=== PATIENT | male | born 1990 | race African-American/Black ===

== ENCOUNTER 2017-08-24 10:51 | Emergency (ER) | payer MEDICAID ==
--- NOTE | 2017-08-24 10:59 | ED Physician Chart ---
ED Chief Complaint/HPI - Patient Information Date Seen:: 08/24/17 Time Seen:: 10:59 Chief Complaint:: Cough, chest pain, SOB History of Present Illness:: 26 yo male had dry cough, chest pain, SOB for 4 days. No fever, chills. Had chest pressure, preventing deep breath. Has history of mild intermittent asthma. Allergies:: Allergies Allergy/AdvReac Type Severity Reaction Status Date / Time No Known Allergies Allergy Verified 06/01/16 02:22 ED Review of Systems - Review of Systems General/Constitutional: No fever, No chills Skin: No skin lesions Head: No headache Eyes: No pain ENT: No earache Neck: No neck pain Cardio Vascular: Chest pain Pulmonary: SOB GI: No nausea, No vomiting Musculoskeletal: No bone or joint pain ED Past Medical History - Past Medical History Past Medical History: Asthma/COPD Social History: Non Smoker, No Alcohol, No Drug Use Surgical History: None Family Medical History - Family Member Mother Ethnicity: Non- Living Status: Still Living Hx Family Cancer: No Hx Family Coronary Artery Disease: No Hx Family Congestive Heart Failure: No Hx Family Hypertension: No Hx Family Stroke: No ED Physical Exam - Physical Examination General/Constitutional: Awake, Alert Head: Atraumatic Eyes: PERRL Skin: No skin lesions ENMT: Nasal exam nl Neck: No nuchal rigidity Other Respiratory comments:: Wheezing Cardio Vascular: RRR, No murmur, gallop, rubs, NL S1 S2 GI: No tenderness/rebounding/guarding Extremities: normal strength in all extremities Neuro/Psych: No focal deficits ED Assessment - Assessment General Assessment: Upper respiratory infection, viral Bronchitis Assessment/Comments:: CBC, CMP, UA Trop I, BNP to rule out cardiac abnormality CXR, EKG DuoNeb D/c home Tamiflu F/u PCP or return to ER if symptoms worsen ED Septic Shock - . Is Septic Shock (SBP<90, OR Lactate>4 mmol\L) present?: No ED Reassessment (Disposition) - Reassessment Reassessment Condition:: Improved - Patient Disposition Discharge/Transfer:: Home ED Discharge Plan - Patient Disposition Admit/Discharge/Transfer: PT DISCHARGED HOME Condition at Disposition: Improved Instructions: Upper Respiratory Infection, Adult Additional Instructions: Follow up with your primary care doctor in the next 1-3 days. If symptoms worsen, return to the Emergency Department or call 911. Accepting Physician: Guzman Choi [Active] -
[2017-08-24] MEDS ORDERED: Albuterol/Ipratropium Neb 3 ML AERS HHN ONE ×2 (11:12→11:30)
[2017-08-24 11:25] LABS: URINE MICROSCOPIC INDICATED? YES; URINE SOURCE RANDOM
[2017-08-24 11:30] LABS: URINE BILIRUBIN NEGATIVE (NEGATIVE); URINE BLOOD NEGATIVE (NEGATIVE); URINE GLUCOSE (UA) NEGATIVE (NEGATIVE); URINE KETONE NEGATIVE (NEGATIVE); URINE LEUKOCYTE ESTERASE NEGATIVE (NEGATIVE); URINE NITRATE NEGATIVE (NEGATIVE); URINE PROTEIN NEGATIVE (NEGATIVE); URINE UROBILINOGEN 0.2 E.U./dL (0.2 - 1.0)
[2017-08-24 11:34] LABS: URINE CLARITY CLEAR (CLEAR); URINE COLOR YELLOW
[2017-08-24 11:36] LABS: % BASOPHILS 0.2 % (0.0-2.0); % EOSINOPHILS 9.5 % (0.0-5.0); % LYMPHOCYTES 35.9 % (20.0-50.0); % MONOCYTES 10.8 % (2.0-10.0); % NEUTROPHILS 43.6 % (40.0-80.0); EOSINOPHILE ABSOLUTE 0.5 Th/cmm (0.1-0.4); HEMATOCRIT 44.7 % (41.0-60); HEMOGLOBIN 14.5 gm/dL (12-16); LYMPHOCYTE ABSOLUTE 1.8 Th/cmm (1.5-3.0); MEAN CELL VOLUME 83.9 fl (80-99); MEAN CORPUSCULAR HEMOGLOBIN 27.3 pg (26.0-30.0); MEAN CORPUSCULAR HGB CONC 32.6 pg (28.0-36.0); MEAN PLATELET VOLUME 6.8 fl; MONOCYTE ABSOLUTE 0.6 Th/cmm (0.3-1.0); NEUTROPHILE ABSOLUTE 2.2 Th/cmm (1.8-8.0); PLATELET COUNT 304 Th/cmm (150-400); RED BLOOD COUNT 5.32 Mil/cmm (4.30-5.70); RED CELL DISTRIBUTION WIDTH 12.7 % (11.5-20.0); WHITE BLOOD COUNT 5.1 Th/cmm (4.8-10.8)
[2017-08-24 11:41] LABS: URINE BACTERIA OCCASIONAL /hpf (NONE SEEN); URINE EPITHELIAL CELLS OCCASIONAL /lpf (FEW); URINE WBC 0-2 /hpf (0-5)
[2017-08-24 11:43] LABS: ALB/GLOB RATIO 1.9 (1.0-1.8); ALKALINE PHOSPHATASE 53 U/L (34-104); ANION GAP 8.6 (7.0-16.0); BILIRUBIN,TOTAL 0.5 mg/dL (0.3-1.0); BUN - UREA NITROGEN 13 mg/dL (7-25); CALCIUM SERUM 9.9 mg/dL (8.6-10.3); CARBON DIOXIDE 30.3 mEq/L (21.0-31.0); CHLORIDE 102 mEq/L (98-107); CHOLESTEROL 169 mg/dL (<200); GFR AFRICAN-AMERICAN > 60.0 ml/min (>90); GFR NON AFRICAN-AMERICAN > 60.0 ml/min; GLUCOSE 90 mg/dL (70-105); HDL -HIGH DENSITY LIPOPROTEIN 49 mg/dL (23-92); POTASSIUM SERUM 3.9 mEq/L (3.5-5.1); SGOT 17 U/L (13-39); SGPT/ALT 17 U/L (7-52); SODIUM SERUM 137 mEq/L (136-145); TOTAL PROTEIN,SERUM 7.6 gm/dL (6.0-8.3); TRIGLYCERIDES 80 mg/dL (<150)
[2017-08-24 11:48] LABS: AMPHETAMINE URINE NEGATIVE (NEGATIVE); BARBITURATES URINE NEGATIVE (NEGATIVE); BENZODIAZEPINES QUAL URINE NEGATIVE (NEGATIVE); CANNABINOID THC NEGATIVE (NEGATIVE); COCAINE METABOLITE QUAL URINE NEGATIVE (NEGATIVE); METHADONE URINE NEGATIVE (NEGATIVE); METHAMPHETAMINES QUAL URINE NEGATIVE (NEGATIVE); OPIATES (MORPHINE) QUAL. URINE NEGATIVE (NEGATIVE); PHENCYCLIDINE (PCP) URINE NEGATIVE (NEGATIVE); TRICYCLICS (TCA) QUAL. URINE NEGATIVE (NEGATIVE)
== END 2017-08-24 12:22 | disposition home or self-care (01) ==
LOC: ER 10:51
DX: J06.9 Acute upper respiratory infection, unspecified (principal); J40 Bronchitis, not specified as acute or chronic; J45.909 Unspecified asthma, uncomplicated; J44.9 Chronic obstructive pulmonary disease, unspecified
CPT/HCPCS: 36415-UA; 80053-TC; 80061-TC; 80307; 81001-TC; 83880-TC; 84484-TC; 85025-TC; 93005; 94640

== ENCOUNTER 2017-09-01 08:29 | Emergency (ER) | payer MEDICAID ==
--- NOTE | 2017-09-01 08:51 | ED Physician Chart ---
ED Chief Complaint/HPI - Patient Information Date Seen:: 09/01/17 Time Seen:: 08:44 Chief Complaint:: EAR ACHES BOTH EARS Allergies:: Allergies Allergy/AdvReac Type Severity Reaction Status Date / Time No Known Allergies Allergy Verified 06/01/16 02:22 THIS 26 YEAR OLD MALE HAD ONSET OF STUFFINESS AND DECREASED HEARING IN HIS RIGHT EAR 5 DAYS AGO. YESTERDAY THE PATIENT HAD ONSET OF SIMILAR SYMPTOMS IN HIS LEFT EAR. HE HAS HAD NO TINNITUS, SORE THROAT, SWOLLEN GLANDS IN HIS NECK. Family Medical History - Family Member Mother History Unknown: Yes Ethnicity: Non- Living Status: Still Living Hx Family Cancer: No Hx Family Coronary Artery Disease: No Hx Family Congestive Heart Failure: No Hx Family Hypertension: No Hx Family Stroke: No ED Physical Exam - Physical Examination General/Constitutional: Awake, Well-developed, well-nourished, Alert, No distress, Non-toxic appearing, Ambulatory Head: Atraumatic Eyes: Lids, conjuctiva normal, PERRL, EOMI Skin: Nl inspection, No rash, No skin lesions, No ecchymosis, Well hydrated, No lymphadenopathy Other ENMT comments:: THE PATIENT'S RIGHT EAR HAS A NORMAL AUDITORY CANAL WITH NO DISCHARGE. THERE IS NO CERUMEN IMPACTION. THE TM IS DUSKY IN COLOR WITH DECREASED LANDMARKS. THE LEFT EAR DOES HAVE CERUMEN OBSCURING the TM. POSTERIOR PHARYNX IS NONINFLAMED AND THERE IS NO EXUDATES. PATIENT IS STATUS POST TONSILLECTOMY ON BOTH SIDES. ED Labs/Radiology/EKG Results - Lab Results Results: NO LABORATORY OR RADIOGRAPHIC STUDIES WERE INDICATED. ED Septic Shock - . Is Septic Shock (SBP<90, OR Lactate>4 mmol\L) present?: No ED Reassessment (Disposition) - Reassessment Reassessment Condition:: Unchanged - Diagnosis Diagnosis:: RIGHT OTITIS MEDIA. LEFT CERUMEN impaction, mild TAKE THE CEPHALEXIN 500 MG, 4 TIMES A DAY FOR A COURSE OF 10 DAYS. FOLLOW-UP WITH YOUR PRIMARY CARE PHYSICIAN IF THE PAIN HAS NOT RESOLVED IN 2-3 DAYS. RETURN TO THE EMERGENCY DEPARTMENT FOR REEVALUATION IF THE PAIN INCREASES.
== END 2017-09-01 09:00 | disposition home or self-care (01) ==
LOC: ER 08:29
DX: H66.91 Otitis media, unspecified, right ear (principal); H61.22 Impacted cerumen, left ear
CPT/HCPCS: Z7502